=== PATIENT | male | born 1945 | race Caucasian/White ===

== ENCOUNTER 2023-02-25 10:44 | Outpatient (CLI) | payer MEDICARE | END 2023-02-25 10:45 | disposition home or self-care (01) | LOC: BICRAD 10:44 | PROVIDERS: ATTEND Physician Assistant Medical | DX: D12.6 Benign neoplasm of colon, unspecified (principal); B96.81 Helicobacter pylori [H. pylori] as the cause of diseases classified elsewhere; R13.10 Dysphagia, unspecified; K59.09 Other constipation | CPT/HCPCS: 71046 ==